=== PATIENT | female | born 1950 | race Two or more races ===

== ENCOUNTER 2022-10-29 22:16 | Emergency (ER) | payer MEDICARE, BC ==
[2022-10-29] MEDS: Acetaminophen/HYDROcodone 325-10 MG Tab PO ONE (22:45)
[2022-10-30 04:23] VITALS: BP 137/66; PULSE 72
== END 2022-10-29 23:37 | disposition home or self-care (01) ==
LOC: KA.ED 22:16
DX: M25.561 Pain in right knee (principal); I11.0 Hypertensive heart disease with heart failure; I50.9 Heart failure, unspecified; K21.9 Gastro-esophageal reflux disease without esophagitis; E11.9 Type 2 diabetes mellitus without complications; E03.9 Hypothyroidism, unspecified; Z79.84 Long term (current) use of oral hypoglycemic drugs; Z79.899 Other long term (current) drug therapy; Z91.048 Other nonmedicinal substance allergy status; Z88.5 Allergy status to narcotic agent
CPT/HCPCS: 73562; 99283; A9270

== ENCOUNTER 2023-02-26 17:40 | Emergency (ER) | payer MEDICARE, BC ==
[2023-02-26] MEDS: Ondansetron 4 MG Tab.DIS PO ONE (18:22)
[2023-02-26 18:27] LABS: BASOPHILS ABSOLUTE AUTO 0.05 10^3/uL (0.00-0.10); BASOPHILS PERCENT AUTO 0.7 % (0.0-1.0); EOSINOPHILS ABSOLUTE AUTO 0.26 10^3/uL (0.10-0.30); EOSINOPHILS PERCENT AUTO 3.6 % (1.0-3.0); HEMATOCRIT 40.3 % (37.0-47.0); IMMATURE GRAN ABSOLUTE AUTO 0.01 10^3/uL (0.00-0.50); IMMATURE GRAN PERCENT AUTO 0.1 % (0.0-5.0); LYMPHOCYTES ABSOLUTE AUTO 2.22 10^3/uL (1.00-4.00); LYMPHOCYTES PERCENT AUTO 30.6 % (20.0-40.0); MEAN CORPUSCULAR HEMOGLOBIN 27.1 pg (27.0-31.0); MEAN CORPUSCULAR HGB CONC 32.3 g/dL (32.0-36.0); MEAN PLATELET VOLUME 11.5 fL (7.4-10.4); MONOCYTES ABSOLUTE AUTO 0.42 10^3/uL (0.10-0.80); MONOCYTES PERCENT AUTO 5.8 % (2.0-8.0); NEUTROPHILS PERCENT AUTO 59.2 % (50.0-70.0); PLATELET COUNT,PLT 190 10^3/uL (150-400); RED CELL DISTRIBUTION WIDTH 14.7 % (11.5-14.5); WHITE BLOOD CELL COUNT,WBC 7.26 10^3/uL (5.00-10.00)
[2023-02-26 18:47] LABS: ALBUMIN 3.82 g/dL (3.40-5.00); ANION GAP 10.3 mmol/L (5-15); BILIRUBIN TOTAL 0.3 mg/dL (0.2-1.0); CALCIUM 8.7 mg/dL (8.7-10.3); CARBON DIOXIDE,CO2 27.5 mmol/L (21.0-32.0); CREATININE 0.66 mg/dL (0.51-1.17); EST CRCL DRUG DOSING (CG) 65.61 mL/min; POTASSIUM,K 3.8 mmol/L (3.5-5.1); PROTEIN TOTAL,TP 6.9 g/dL (6.4-8.2)
[2023-02-26] MEDS: Omeprazole 20 MG Cap.CR PO ONE (21:05)
[2023-02-26] MEDS: Famotidine 20 MG Tab PO ONE (21:05)
[2023-02-26 21:11] VITALS: BP 167/85; PULSE 75
== END 2023-02-26 21:07 | disposition home or self-care (01) ==
LOC: KA.ED 17:40
DX: R10.13 Epigastric pain (principal); I10 Essential (primary) hypertension; E78.00 Pure hypercholesterolemia, unspecified; K21.9 Gastro-esophageal reflux disease without esophagitis; E11.9 Type 2 diabetes mellitus without complications; Z88.5 Allergy status to narcotic agent; Z91.048 Other nonmedicinal substance allergy status; Z79.899 Other long term (current) drug therapy; Z79.84 Long term (current) use of oral hypoglycemic drugs
CPT/HCPCS: 36415; 71045; 74018; 80053; 84484; 85025; 93010; 99284; A9270-GY

== ENCOUNTER 2023-03-26 14:12 | Emergency (ER) | payer MEDICARE, BC ==
[2023-03-26] MEDS ORDERED: Sodium Chloride 0.9% 10 ML Syringe FLUSH PRN (14:30)
[2023-03-26 14:34] LABS: BASOPHILS ABSOLUTE AUTO 0.04 10^3/uL (0.00-0.10); BASOPHILS PERCENT AUTO 0.7 % (0.0-1.0); EOSINOPHILS ABSOLUTE AUTO 0.16 10^3/uL (0.10-0.30); EOSINOPHILS PERCENT AUTO 2.8 % (1.0-3.0); HEMATOCRIT 40.4 % (37.0-47.0); HEMOGLOBIN 13.3 g/dL (12.0-16.0); IMMATURE GRAN ABSOLUTE AUTO 0.01 10^3/uL (0.00-0.50); IMMATURE GRAN PERCENT AUTO 0.2 % (0.0-5.0); LYMPHOCYTES ABSOLUTE AUTO 1.57 10^3/uL (1.00-4.00); LYMPHOCYTES PERCENT AUTO 27.9 % (20.0-40.0); MEAN CORPUSCULAR HEMOGLOBIN 28.3 pg (27.0-31.0); MEAN CORPUSCULAR HGB CONC 32.9 g/dL (32.0-36.0); MEAN PLATELET VOLUME 11.8 fL (7.4-10.4); MONOCYTES ABSOLUTE AUTO 0.32 10^3/uL (0.10-0.80); MONOCYTES PERCENT AUTO 5.7 % (2.0-8.0); NEUTROPHILS ABSOLUTE AUTO 3.53 10^3/uL (2.50-7.00); NEUTROPHILS PERCENT AUTO 62.7 % (50.0-70.0); PLATELET COUNT,PLT 178 10^3/uL (150-400); RED CELL DISTRIBUTION WIDTH 13.6 % (11.5-14.5); WHITE BLOOD CELL COUNT,WBC 5.63 10^3/uL (5.00-10.00)
[2023-03-26 15:26] LABS: ANION GAP 14.2 mmol/L (5-15); CARBON DIOXIDE,CO2 29.1 mmol/L (21.0-32.0); CREATININE 0.67 mg/dL (0.51-1.17); EST CRCL DRUG DOSING (CG) 64.63 mL/min; POTASSIUM,K 3.3 mmol/L (3.3-5.3)
[2023-03-26 15:28] LABS: ALBUMIN 3.8 g/dL (3.00-4.80); BILIRUBIN TOTAL 0.4 mg/dL (0.2-1.0); CALCIUM 8.5 mg/dL (8.7-10.3)
[2023-03-26] MEDS ORDERED: LORazepam 2 MG/ML SDV IVPUSH ONE (15:52)
[2023-03-26 16:18] VITALS: BP 152/77; PULSE 77
== END 2023-03-26 16:26 | disposition home or self-care (01) ==
LOC: KA.ED 14:12
DX: I16.0 Hypertensive urgency (principal); I11.0 Hypertensive heart disease with heart failure; I50.9 Heart failure, unspecified; E11.9 Type 2 diabetes mellitus without complications; E03.9 Hypothyroidism, unspecified; Z79.84 Long term (current) use of oral hypoglycemic drugs; Z79.899 Other long term (current) drug therapy; Z88.5 Allergy status to narcotic agent; Z88.8 Allergy status to other drugs, medicaments and biological substances; Z91.048 Other nonmedicinal substance allergy status
CPT/HCPCS: 70450; 71045; 80053; 84484; 85025; 93005; 96374; 99284-25; J2060